=== PATIENT | female | born 1945 | race Caucasian/White ===

== ENCOUNTER 2016-10-17 23:17 | Day surgery (SDCO) | payer MEDICARE ==
[~2016-10-17] VITALS: Ht 157.5 cm; Wt 62.4 kg
[2016-10-18 01:04] LABS: BASOPHIL 0.2 % (0-2); EOSINOPHIL 2.7 % (0-7); HCT 35.7 % (37.0-47.0); HGB 12.2 g/dl (12.5-16.0); LYMPHOCYTE 30.2 % (15-48); MCH 30.5 pg (25.0-31.0); MCHC 34.2 g/dL (32.0-36.0); MCV 89.3 fL (78.0-100.0); MONOCYTE 12.1 % (0-12); MPV 11.1 fL (6.0-9.5); NEUTROPHIL 54.8 % (41-80); PLT 191 K/uL (150-400); RDW 12.6 % (11.5-14.0); WBC 8.7 K/uL (4.0-10.5)
[2016-10-18 01:14] LABS: PROTHROMBIN TIME 12.8 SECONDS (11.7-14.0); PTT 28.1 SECONDS (23.2-31.4)
[2016-10-18 01:21] LABS: ALBUMIN 4.8 g/dL (3.4-4.8); BILIRUBIN - TOTAL 0.3 mg/dL (0.1-1.0); CREATININE 1.3 mg/dL (0.5-1.0); GLOBULIN (CALCULATION) 2.2 g/dL (2.2-4.2); POTASSIUM 4.3 mmol/L (3.5-5.1)
[2016-10-18 01:22] LABS: CKMB 2.35 ng/mL (0.97-4.94); TROPONIN T 0.031 ng/mL
[2016-10-18 07:34] LABS: CKMB 2.13 ng/mL (0.97-4.94); TROPONIN T 0.02 ng/mL
[2016-10-18] MEDS ORDERED: ATENOLOL25 MG PO (11:01)
[2016-10-18] MEDS ORDERED: ASPIRIN CHEWABL81 MG PO (11:02)
[2016-10-18] MEDS ORDERED: AMOXICILLIN500 MG PO (11:02)
[2016-10-18] MEDS ORDERED: LIPITOR40 MG PO (11:02)
[2016-10-18] MEDS ORDERED: PAXIL20 MG PO (11:02)
[2016-10-18] MEDS ORDERED: CERTAGEN1 EACH PO (11:03)
[2016-10-18] MEDS ORDERED: VITAMIN C500 M1 PO (11:03)
--- NOTE | 2016-10-18 11:41 | NUR ---
IV SITE D/C'D;PRESSURE DRESSING APPLIED;PT TOLERATED WELL DC & LEXISCAN STRESS TESTING INSTRUCTIONS GIVEN;PT VERBALIZED UNDERSTANDING. PT REFUSED WC ASSISTANCE. D/C FROM FACILITY.
== END 2016-10-18 11:45 | disposition home or self-care (01) ==
LOC: FER 23:17 → FTCU 10-18 02:30
PROVIDERS: Emergency Medicine Emergency Medical Services; Hospitalist; ADMIT Internal Medicine Cardiovascular Disease
DX: R07.89 Other chest pain (principal); I10 Essential (primary) hypertension; E78.5 Hyperlipidemia, unspecified; J40 Bronchitis, not specified as acute or chronic; M50.321 Other cervical disc degeneration at C4-C5 level; I65.29 Occlusion and stenosis of unspecified carotid artery; F41.9 Anxiety disorder, unspecified; K44.9 Diaphragmatic hernia without obstruction or gangrene; K22.70 Barrett's esophagus without dysplasia; Z79.82 Long term (current) use of aspirin
CPT/HCPCS: 36415; 71020; 72050; 80053; 80061; 82550; 82553; 84484; 85025; 85610; 85730; 93005; 96372; G0378

== ENCOUNTER → 2021-11-02 | Day surgery (SDC) | payer MEDICARE ==
[~2021-11-02] VITALS: Ht 162.6 cm; Wt 46.8 kg
[~2021-11-02] MED LIST: AMOXICILLIN500 MG PO; ASPIRIN CHEWABL81 MG PO; BENADRYL PO; CERTAGEN1 EACH PO; DEMADEX10 MG PO; ESTRACE0.5 MG PO; LEVOCETIRIZINE D5 MG PO; LIPITOR40 MG PO; MIRALAX17 GM PO; PROTONIX 40MG T40 MG PO; SINGULAIR10 MG PO; TOPROL XL 25MG25 MG PO; VITAMIN C500 M1 PO; ZESTRIL2.5 MG PO; ZOLOFT25 MG PO
== END | disposition home or self-care (01) ==
LOC: FAS 10:34
DX: K22.70 Barrett's esophagus without dysplasia (principal); K57.30 Diverticulosis of large intestine without perforation or abscess without bleeding; K64.8 Other hemorrhoids; K21.00 Gastro-esophageal reflux disease with esophagitis, without bleeding; K44.9 Diaphragmatic hernia without obstruction or gangrene; K82.8 Other specified diseases of gallbladder; I25.10 Atherosclerotic heart disease of native coronary artery without angina pectoris; I12.9 Hypertensive chronic kidney disease with stage 1 through stage 4 chronic kidney disease, or unspecified chronic kidney disease; N18.9 Chronic kidney disease, unspecified; E78.5 Hyperlipidemia, unspecified; D50.9 Iron deficiency anemia, unspecified; Z86.010 Personal history of colon polyps; Z88.2 Allergy status to sulfonamides; Z88.1 Allergy status to other antibiotic agents; Z79.82 Long term (current) use of aspirin; Z79.899 Other long term (current) drug therapy
CPT/HCPCS: J2704; J7120